=== PATIENT | female | born 1965 | race Caucasian/White ===

== ENCOUNTER 2018-02-24 11:23 | Inpatient (IN) | payer OTHER ==
[~2018-02-24] VITALS: Ht 175.3 cm; Wt 86.3 kg
[2018-02-24] VITALS (14 sets, daily range): BP systolic 141–193; BP diastolic 50–96
[2018-02-24 11:47] LABS: BASOPHILS % (AUTO) 0.2 % (0-1); EOSINOPHILS # (AUTO) 0.2 X10'3 (0-0.9); EOSINOPHILS % (AUTO) 2.4 % (0-6); HEMATOCRIT 37.7 % (35.0-45.0); HEMOGLOBIN 12.9 g/dl (12.0-16.0); LYMPHOCYTES # (AUTO) 1.5 X10'3 (1.1-4.8); LYMPHOCYTES % (AUTO) 16.7 % (21-51); MEAN CORPUSCULAR HEMOGLOBIN 27.3 PG (27.0-31.0); MEAN CORPUSCULAR HGB CONC 34.1 % (33.0-36.5); MEAN PLATELET VOLUME 7.7 FL (7.4-10.4); MONOCYTES # (AUTO) 0.6 X10'3 (0-0.9); MONOCYTES % (AUTO) 6.4 % (2-12); NEUTROPHILS # (AUTO) 6.6 X10'3 (1.8-7.7); NEUTROPHILS % (AUTO) 74.3 % (42-75); PLATELET COUNT 245 X10'3 (140-440); RED BLOOD COUNT 4.71 X10'6 (4.20-5.60); RED CELL DISTRIBUTION WIDTH 14.1 % (11.5-14.5); WHITE BLOOD COUNT 8.9 X10'3 (4.5-11.0)
[2018-02-24 11:56] LABS: INR 0.9 INR; PROTHROMBIN TIME 9.5 SECONDS (9.0-12.0)
[2018-02-24 11:57] LABS: COLOR,URINE STRAW (Yellow); GLUCOSE, URINE NEGATIVE (Neg); KETONES,URINE NEGATIVE (Neg); LEUKOCYTE ESTERASE ,URINE NEGATIVE (Neg); NITRITES, URINE NEGATIVE (Neg); OCCULT BLOOD,URINE MODERATE (Neg); PH,URINE 5.5 (4.8-8.0); PROTEIN,URINE NEGATIVE (Neg); UROBILINOGEN,URINE 0.2 E.U/dL (0.2-1.0)
[2018-02-24 11:58] LABS: CLARITY,URINE SLIGHTLY CLOUDY (Clear); UA COLLECTION TYPE CLN CATCH MIDSTREAM
[2018-02-24 12:02] LABS: ALANINE AMINOTRANSFERASE 22 U/L (12-78); ALBUMIN 3.5 G/DL (3.4-5.0); ALBUMIN/GLOBULIN RATIO 1.2 (1.1-1.5); ALKALINE PHOSPHATASE 89 IU/L (46-116); ANION GAP 7 (8-16); ASPARTATE AMINO TRANSFERASE 27 U/L (10-37); BILIRUBIN,TOTAL 0.4 MG/DL (0.1-1.0); BLOOD UREA NITROGEN 14 MG/DL (7-18); BUN/CREATININE RATIO 11.3 (6.6-38.0); CALCIUM 8.9 MG/DL (8.5-10.1); CHLORIDE 104 MMOL/L (99-107); CREATININE 1.24 MG/DL (0.40-0.90); GLUCOSE 98 MG/DL (70-104); POTASSIUM 4.2 MMOL/L (3.5-5.1); SODIUM 138 MMOL/L (135-145); TOTAL CARBON DIOXIDE 27.1 MMOL/L (24-32); TOTAL PROTEIN 6.4 G/DL (6.4-8.2); eGFR 46 ML/MIN
[2018-02-24 12:02] LABS: SQUAMOUS EPITHELIAL CELL,UR FEW /LPF (FEW)
[2018-02-24 12:03] LABS: BACTERIA,URINE FEW /HPF (Neg); WBC,URINE 0-4 /HPF (0-4)
[2018-02-24] MEDS ORDERED: ketorolac trometh. 30mg/ml inj. IV ONE (12:15)
[2018-02-24] MEDS ORDERED: LIDOcaine 2 gm/250ml D5W 250 ML IV ONE (12:15)
[2018-02-24] MEDS ORDERED: ZOLP10TA5 PO (13:10)
[2018-02-24] MEDS ORDERED: MELO-100 PO (13:10)
[2018-02-24] MEDS ORDERED: LORA1TAB PO (13:10)
[2018-02-24] MEDS ORDERED: AMITRIPTYLINE (13:10)
[2018-02-24] MEDS ORDERED: CYCL-1 PO (13:10)
[2018-02-24] MEDS ORDERED: TRAM50TA2 PO (13:10)
[2018-02-24] MEDS: normal saline 1000ml 1,000 ML IV SCH (13:26)
[2018-02-24] MEDS ORDERED: magnesium hydroxide 30ml (MOM) UD suspension PO PRN (13:30)
[2018-02-24] MEDS ORDERED: magnesium 4gm in 100ml NS 100 ML IV PRN (13:30)
[2018-02-24] MEDS ORDERED: potassium Cl 40MEQ/NS 500ml 500 ML IV PRN ×2 (13:30)
[2018-02-24] MEDS ORDERED: magnesium 2GM in 50ml NS 50 ML IV PRN (13:30)
[2018-02-24] MEDS ORDERED: ondansetron/PF 4mg/2ml inj IV PRN ×2 (13:30→14:40)
[2018-02-24] MEDS ORDERED: mag hydrox/Alum hydrox/simeth 30ml oral suspension PO PRN (13:30)
[2018-02-24] MEDS ORDERED: acetaminophen 325mg tablet PO PRN ×2 (13:30)
[2018-02-24] MEDS ORDERED: morphine 4 MG/ML inj SYRINge IV PRN ×4 (13:30→14:40)
[2018-02-24] MEDS ORDERED: potassium Cl 20 mEq SR tablet PO PRN ×2 (13:30)
[2018-02-24] MEDS ORDERED: magnesium Cl slow-release 64mg tablet PO PRN (13:30)
[2018-02-24] MEDS ORDERED: HYDROcodone/acetaminophen 5mg/325mg tablet PO PRN (13:30)
[2018-02-24] MEDS ORDERED: fentaNYL/PF 50MCG/1 ML 2ML syringe ONE (14:13)
[2018-02-24] MEDS ORDERED: midazolam 2 mg/2 ml injection ONE (14:13)
[2018-02-24] MEDS ORDERED: propofol inj 20 ML IV ONE (14:15)
[2018-02-24] MEDS ORDERED: ringers solution, lacted 1,000 ML IV SCH (14:37)
[2018-02-24] MEDS ORDERED: proCHLORperazine 10 MG/2 ml inj IV PRN (14:40)
[2018-02-24] MEDS ORDERED: meperidine/PF 50mg/ml syringe IV PRN ×3 (14:40)
[2018-02-24] MEDS ORDERED: clindamycin phosphate 150mg/ml inj. ONE (14:44)
[2018-02-24] MEDS ORDERED: ondansetron/PF 4mg/2ml inj ONE (14:47)
[2018-02-24] MEDS ORDERED: dexamethasone sod phosphate 4mg/ml inj. ONE (16:00)
[2018-02-24] MEDS ORDERED: sevoflurane 250ml liquid IH ONE (16:00)
[2018-02-24] MEDS ORDERED: furosemide 20 MG/2 ML vial IV ONE (17:35)
[2018-02-24] MEDS: HYDROcodone/acetaminophen 10/325mg tab PO PRN (17:55)
[2018-02-24] MEDS: heparin, porcine 5000 units/ml vial SQ SCH (20:00)
[2018-02-24] MEDS ORDERED: temazepam 15mg capsule PO PRN (21:00)
[2018-02-24] MEDS ORDERED: amitriptyline 25mg tablet PO SCH (21:00)
[2018-02-24] MEDS ORDERED: tamsulosin 0.4mg capsule PO SCH (21:00)
[2018-02-25] VITALS: BP 113/59
[2018-02-25] MEDS: normal saline 1000ml 1,000 ML IV SCH ×2 (00:06→09:26)
[2018-02-25 05:32] LABS: BASOPHILS % (AUTO) 0.1 % (0-1); EOSINOPHILS % (AUTO) 0 % (0-6); HEMATOCRIT 38.6 % (35.0-45.0); HEMOGLOBIN 13.1 g/dl (12.0-16.0); LYMPHOCYTES # (AUTO) 1.3 X10'3 (1.1-4.8); LYMPHOCYTES % (AUTO) 13.2 % (21-51); MEAN CORPUSCULAR HEMOGLOBIN 27.5 PG (27.0-31.0); MEAN CORPUSCULAR HGB CONC 33.9 % (33.0-36.5); MEAN CORPUSCULAR VOLUME 81.2 FL (78-98); MEAN PLATELET VOLUME 8.8 FL (7.4-10.4); MONOCYTES # (AUTO) 0.4 X10'3 (0-0.9); MONOCYTES % (AUTO) 4.2 % (2-12); NEUTROPHILS # (AUTO) 8.1 X10'3 (1.8-7.7); NEUTROPHILS % (AUTO) 82.5 % (42-75); PLATELET COUNT 267 X10'3 (140-440); RED BLOOD COUNT 4.75 X10'6 (4.20-5.60); RED CELL DISTRIBUTION WIDTH 14.1 % (11.5-14.5); WHITE BLOOD COUNT 9.8 X10'3 (4.5-11.0)
[2018-02-25 05:59] LABS: ALANINE AMINOTRANSFERASE 17 U/L (12-78); ALBUMIN 3.1 G/DL (3.4-5.0); ALKALINE PHOSPHATASE 88 IU/L (46-116); ANION GAP 9 (8-16); ASPARTATE AMINO TRANSFERASE 20 U/L (10-37); BILIRUBIN,TOTAL 0.4 MG/DL (0.1-1.0); BLOOD UREA NITROGEN 20 MG/DL (7-18); CALCIUM 8.7 MG/DL (8.5-10.1); CHLORIDE 106 MMOL/L (99-107); CREATININE 1.11 MG/DL (0.40-0.90); GLUCOSE 121 MG/DL (70-104); MAGNESIUM 2.1 MG/DL (1.5-2.4); SODIUM 142 MMOL/L (135-145); TOTAL CARBON DIOXIDE 26.6 MMOL/L (24-32); TOTAL PROTEIN 6.1 G/DL (6.4-8.2); eGFR 52 ML/MIN
[2018-02-25] MEDS ORDERED: K and/or MAG REPLACEMENT MC SCH (08:00)
[2018-02-25] MEDS: heparin, porcine 5000 units/ml vial SQ SCH (08:00)
[2018-02-25 08:08] VITALS: BP 139/81
[2018-02-25] MEDS ORDERED: TAMS0.4C32 PO (11:20)
[2018-02-25 12:08] VITALS: BP 129/80
[2018-02-25] MEDS: HYDROcodone/acetaminophen 10/325mg tab PO PRN (12:59)
== END 2018-02-25 15:15 | disposition home or self-care (01) | DRG 694 ==
LOC: ER 11:25 → ED HOLD 12:46 → SUR 3N 16:36 → UNDODISIN 02-25 13:50
PROVIDERS: ADMIT Internal Medicine; ATTEND Internal Medicine
PROC: BT171ZZ Fluoroscopy of Left Ureter using Low Osmolar Contrast (ICD-10-PCS; 2018-02-24)
PROC: 0T778DZ Dilation of Left Ureter with Intraluminal Device, Via Natural or Artificial Opening Endoscopic (ICD-10-PCS; principal; 2018-02-24 14:05)
DX: N13.2 Hydronephrosis with renal and ureteral calculous obstruction (principal); F41.9 Anxiety disorder, unspecified; G47.00 Insomnia, unspecified; N28.9 Disorder of kidney and ureter, unspecified; G89.29 Other chronic pain; K59.00 Constipation, unspecified; M79.7 Fibromyalgia; Z87.442 Personal history of urinary calculi; Z90.710 Acquired absence of both cervix and uterus; Z90.721 Acquired absence of ovaries, unilateral; Z88.0 Allergy status to penicillin; Z88.2 Allergy status to sulfonamides; Z88.8 Allergy status to other drugs, medicaments and biological substances
CPT/HCPCS: 36415; 76000; 80053; 81001; 83735; 85025; 85610; 87070; 93005; A4402; C1769; C2625; J1100; J1644; J1885; J1940; J2001; J2175; J2250; J2405; J2704; J3010; J3490; J7030; J7120